=== PATIENT | female | born 1960 | race Caucasian/White ===

== ENCOUNTER 2017-09-20 13:08 | Emergency (ER) | payer OTHER ==
[~2017-09-20] VITALS: Ht 165.1 cm; Wt 2.3 kg
[2017-09-20 13:12] VITALS: BP 199/107
--- NOTE | 2017-09-20 13:30 | NUR ---
PATIENT PRESENTS TO ED WITH RT FOOT/ ANKLE PAIN S/P TRIP AND FALL THIS AM. TENDER TO TOUCH, DENIES ANY NUMBNESS/TINGLING. CMS+ TOOK 3 ADVILS THIS MORNING MED HX; AFIB, HTN, CARDIAC ABLASIONS, STROKE RX: SOTALOL,LEVOTHYROXINE,GUAFACINE,LISINOPRIL, BUPROPION, PRAVASTATIN, XARELTO; DENIES N/V/D; SKIN IS PINK/WARM/DRY; AAOX4 WITH EVEN AND STEADY GAIT; LUNGS CLEAR BL; HR EVEN AND REGULAR; PT DENIES ANY FEVER, CP, SOB, OR COUGH AT THIS TIME; PATIENT STATES PAIN OF 10/10 AT THIS TIME; VSS; PATIENT POSITIONED FOR COMFORT; ER MD MADE AWARE OF PT STATUS.
[2017-09-20 16:05] VITALS: BP 165/108
--- NOTE | 2017-09-20 16:05 | NUR ---
Patient discharged with v/s stable. Written and verbal after care instructions given and explained. Patient alert, oriented and verbalized understanding of instructions. Wheel Chair Assisted with to home. All questions addressed prior to discharge. ID band removed. Patient advised to follow up with PMD. Rx of NORCO given. Patient educated on indication of medication including possible reaction and side effects. Opportunity to ask questions provided and answered.
== END 2017-09-20 16:05 | disposition home or self-care (01) ==
LOC: MED 13:08
DX: S93.601A Unspecified sprain of right foot, initial encounter (principal); I10 Essential (primary) hypertension; I48.91 Unspecified atrial fibrillation; X58.XXXA Exposure to other specified factors, initial encounter; Y93.89 Activity, other specified; Y92.89 Other specified places as the place of occurrence of the external cause; Y99.8 Other external cause status
CPT/HCPCS: 29515; 73630; 99284